=== PATIENT | male | born 1995 | race Caucasian/White ===

== ENCOUNTER 2018-08-14 22:43 | Emergency (ER) | payer OTHER ==
--- NOTE | 2018-08-14 23:41 | XRAY Report ---
Reason: Trauma Procedure Date: 08/14/2018 Accession Number: [id number] / [id number] Procedure: XR - Hand 3 View BILAT CPT Code: FULL RESULT: EXAMS: 1. Right Hand Radiography 2. Left Hand Radiography EXAM DATE: 08/14/2018 11:33 PM. CLINICAL HISTORY: Trauma. Pain and numbness after injury. COMPARISON: None. TECHNIQUE: 3 views each hand. FINDINGS: Right: Bones: No fracture seen. No acute osseous abnormality. Joints: No dislocation seen. Joint spaces appear intact. Soft Tissues: Mild soft tissue swelling. Left: Bones: No fracture seen. No acute osseous abnormality. Joints: No dislocation seen. Joint spaces appear intact. Soft Tissues: Soft tissue swelling. IMPRESSION: 1. No fracture or dislocation seen bilaterally. RADIA
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
[2018-08-15] MEDS ORDERED: LORazepam 1 MG TABLET PO STA (00:23)
[2018-08-15 00:32] VITALS: BP 142/69
== END 2018-08-15 00:33 | disposition home or self-care (01) ==
LOC: ED 22:43
DX: S69.92XA Unspecified injury of left wrist, hand and finger(s), initial encounter (principal); S69.91XA Unspecified injury of right wrist, hand and finger(s), initial encounter; W22.8XXA Striking against or struck by other objects, initial encounter
CPT/HCPCS: 73130; 99282; 99283; J8499